=== PATIENT | male | born 1935 | race Caucasian/White ===

== ENCOUNTER → 2017-07-20 | Outpatient (CLI) | payer MEDICARE ==
[2017-07-20 12:37] LABS: CREATININE 0.97 mg/dL (0.7-1.3)
== END | disposition home or self-care (01) ==
LOC: RAD 11:43
PROVIDERS: ATTEND Family Medicine
DX: R06.02 Shortness of breath (principal); R07.89 Other chest pain; N28.1 Cyst of kidney, acquired; N20.0 Calculus of kidney
CPT/HCPCS: 36415; 71275; 82565; 84520